=== PATIENT | male | born 1955 | race Caucasian/White ===

== ENCOUNTER 2019-01-10 05:15 | Day surgery (SDC) | payer OTHER ==
[~2019-01-10] VITALS: Ht 185.4 cm; Wt 109.8 kg
--- NOTE | ~2019-01-10 | OP ---
PATIENT NAME: JOHN GAMBLE MEDICAL RECORD: [id number] [facility] DATE: SURGEON: NESTOR BARROW MD DATE OF OPERATION: 01/10/2019 PREOPERATIVE DIAGNOSIS: Recurrent basal cell cancer of the right cheek. POSTOPERATIVE DIAGNOSIS: Recurrent basal cell cancer of the right cheek. Please see dimensions below. PROCEDURE: Excision of recurrent basal cell cancer of the right face with placement of Restrata (nanofiber synthetic matrix). The excised specimen was 2.5 x 2.4 cm in dimension. The risks, possible complications and alternatives to the procedure were explained to the patient. He elects to proceed. I specifically discussed with him the possibility that we would not be able to close the wound primarily. It is near the upper cheek and just below the right eyelid and just lateral to the nose. I felt that if the defect was significant and we tried to close it primarily, this would lead to an ectropion of the lower lid and could cause the conjunctiva and sclera to dry out. In that event, we could either perform some type of flap procedure on the face or wait for a granulation bed to form and then place a full-thickness skin graft or allow the area to epithelialize. DESCRIPTION OF THE PROCEDURE: The patient was conveyed the operating room electively on 01/10/2019. General anesthesia was induced by the anesthesia staff. The face was sterilely prepped and draped. I excised the lesion through the use of double curvilinear incisions. The dimensions of the excision were marked. I then marked the excised specimen with sutures in order to allow the pathologist to orient this. Frozen section diagnosis revealed a close margin superiorly and a positive margin at the deep margin. I then re-excised the superior margin. This was sent as a permanent section. I then re-excised the base of the wound. Meticulous hemostasis was achieved with electrocautery. Subcutaneous flaps were created sharply. I could not close the wound primarily without causing an ectropion of the lower lid. Therefore, I placed the Restrata on the back table and I made some cuts in it to allow fluid to drain through it. It was then placed in the base of the wound and sutured to the wound with small chromic sutures. A sterile dressing was then applied over the wound including an occlusive dressing. I will see the patient on my [facility] on [facility]. There is no need to change the dressing until then. The Restrata should not be removed. The patient was then extubated and conveyed to post-anesthesia care unit where he was in stable condition. TRANSINT:[id number] Voice Confirmation ID: [id number] DOCUMENT ID: [id number] OPERATIVE REPORT [id number] JOHN GAMBLE ROBERT MD CC: BRITTNEY FAYE MD and DR. JOSE ALFREDO SALAZAR [id number] DICTATION DATE: 01/17/191834 [employer] OPERATOR: 01/18/19 [id number] [facility] 01/10/[address] [id number]
[2019-01-10] MEDS ORDERED: LIPITOR20 MG PO (06:14)
[2019-01-10] MEDS ORDERED: BUPROPION HCL100 MG PO (06:14)
[2019-01-10 06:20] VITALS: BP 122/72; Ht 185.4 cm; Wt 109.8 kg
== END 2019-01-10 12:00 | disposition home or self-care (01) ==
LOC: D.OPS 05:15
PROVIDERS: ATTEND Surgery
DX: C44.310 Basal cell carcinoma of skin of unspecified parts of face (principal); L98.9 Disorder of the skin and subcutaneous tissue, unspecified